=== PATIENT | male | born 1980 | race Caucasian/White ===

== ENCOUNTER 2022-07-02 12:50 | Observation (INO) | payer OTHER ==
[2022-07-02] MEDS ORDERED: ASPIRIN 81 MG PO STA (13:13)
[2022-07-02] MEDS ORDERED: NITROGLYCERIN OINT 1 INCH/GM PACKET TOPICAL STA (13:13)
[2022-07-02] MEDS ORDERED: LORazepam 2 MG/ML INJ IV STA (13:13)
--- NOTE | 2022-07-02 13:19 | ED ---
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 Patient states he's been having intermittent chest pain the last 6 months but it seems to worsened. Patient states he's had consistent chest pain since yesterday. Patient states the pain radiates to his left arm and into his jaw and into his back. Patient states she went and saw his doctor today and they sent him directly to the emergency department I offered him an ambulance ride but he refused. Patient states she's also short of breath when he has the chest pain. Patient states exertion does make it worse. Patient denies any diaphoretic episodes. Patient denies any nausea. Patient is a palpitations. Patient denies any recent fever chills states he has a slight cough occasionally. - Related Data Home Medications Medication Instructions Recorded Confirmed Azithromycin [Zithromax Z Pack] See Taper PO DIRECTED 07/02/22 07/02/22 predniSONE See Taper PO DIRECTED 07/02/22 07/02/22 Allergies Allergy/AdvReac Type Severity Reaction Status Date / Time No Known Allergies Allergy Verified 07/02/22 13:32 Review of Systems ROS Statement: Those systems with pertinent positive or pertinent negative responses have been documented in the HPI. ROS Other: All systems not noted in ROS Statement are negative. Past Medical History Additional Past Medical History / Comment(s): cardiac arrythmia History of Any Multi-Drug Resistant Organisms: None Reported Additional Past Surgical History / Comment(s): cardiac ablation Past Psychological History: No Psychological Hx Reported Smoking Status: Vaper Past Alcohol Use History: None Reported Past Drug Use History: None Reported, Marijuana General Exam - General Exam Comments Initial Comments: GENERAL: Patient is well-developed and well-nourished. Patient is nontoxic and well- hydrated and is in mild distress. ENT: Neck is soft and supple. No significant lymphadenopathy is noted. Oropharynx is clear. Moist mucous membranes. Neck has full range of motion without eliciting any pain. EYES: The sclera were anicteric and conjunctiva were pink and moist. Extraocular movements were intact and pupils were equal round and reactive to light. Eyelids were unremarkable. PULMONARY: Unlabored respirations. Good breath sounds bilaterally. No audible rales rhonchi or wheezing was noted. CARDIOVASCULAR: There is a regular rate and rhythm without any murmurs gallops or rubs. ABDOMEN: Soft and nontender with normal bowel sounds. SKIN: Skin is clear with no lesions or rashes and otherwise unremarkable. NEUROLOGIC: Patient is alert and oriented x3. Cranial nerves II through XII are grossly int act. Motor and sensory are also intact. Normal speech, volume and content. Symmetrical smile. MUSCULOSKELETAL: Normal extremities with adequate strength and full range of motion. No lower extremity swelling or edema. No calf tenderness. LYMPHATICS: No significant lymphadenopathy is noted PSYCHIATRIC: Patient is moderately anxious Limitations: no limitations Course Vital Signs 07/02/22 07/02/22 12:51 13:55 Temperature 97.8 F Pulse Rate 126 H 117 H Respiratory 26 H 18 Rate Blood Pressure 173/77 153/89 O2 Sat by Pulse 100 100 Oximetry Medical Decision Making - Medical Decision Making EKG was interpreted by myself shows sinus tachycardia at 130 bpm AK interval 215 QRS is 98 QT interval 318 QTC is 35 per patient's EKG shows no ST segment elevation however there is some slight ST segment depression inferiorly as well as leads V3 through V6 Was pt. sent in by a medical professional or institution (DONAL Dinh, SEISMOGRAPHER, urgent care, hospital, or fci...) When possible be specific @ -Patient's physician sent into the ER to be evaluated Did you speak to anyone other than the patient for history (EMS, parent, family, police, friend...)? What history was obtained from this source @ -No Did you review nursing and triage notes (agree or disagree)? Why? @ -I reviewed and agree with nursing and triage notes Were old charts reviewed (outside hosp., previous admission, EMS record, old EKG, old radiological studies, urgent care reports/EKG's, fci records)? Report findings @ -I reviewed EKG that was sent in from the primary medical care doctor's office Differential Diagnosis (chest pain, altered mental status, abdominal pain women, abdominal pain men, vaginal bleeding, weakness, fever, dyspnea, syncope, headache, dizziness, GI bleed, back pain, seizure, CVA, palpatations, mental health, musculoskeletal)? @ -Differential Chest Pain: Stable Angina, Unstable Angina, STEMI, NSTEMI Aortic Dissection, Pneumothorax, Musculoskeletal, Esophageal Spasm GERD, Cholecystitis, Pancreatitis, Zoster, this is not meant to be an all-inclusive list. EKG interpreted by me (3pts min.). @ -As above X-rays interpreted by me (1pt min.). @ -Chest x-ray was interpreted by myself as no acute abnormality CT interpreted by me (1pt min.). @ -None done U/S interpreted by me (1pt. min.). @ -None done What testing was considered but not performed or refused? (CT, X-rays, U/S, labs)? Why? @ -None What meds were considered but not given or refused? Why? @ -None Did you discuss the management of the patient with other professionals (professionals i.e. , PA, SEISMOGRAPHER, lab, RT, psych nurse, social science instructor, two way radio technician, teacher, data officer, correctional case manager)? Give summary @ -Spoke to Dr. Rubio agreed to admit the patient admitted the patient wrote admitting orders Was smoking cessation discussed for >3mins.? @ -No Was critical care preformed (if so, how long)? @ -No Were there social determinants of health that impacted care today? How? (Homelessness, low income, unemployed, alcoholism, drug addiction, transportation, low edu. Level, literacy, decrease access to med. care, [facility], rehab)? @ -No Was there de-escalation of care discussed even if they declined (Discuss DNR or withdrawal of care, Hospice)? DNR status @ -No What co-morbidities impacted this encounter? (DM, HTN, Smoking, COPD, CAD, Cancer, CVA, ARF, Chemo, Hep., AIDS, mental health diagnosis, sleep apnea, morbid obesity)? @ -Patient has a strong family history of heart disease Was patient admitted / discharged? Hospital course, mention meds given and route, prescriptions, significant lab abnormalities, going to OR and other pertinent info. @ -Patient given emergency department significant chest pain radiated to his arm and jaw and back. Patient was given Nitrol aspirin and a half an Ativan he felt almost 100% better. I spoke with Dr. Rubio he agreed to admit the patient admitted the patient wrote admitting orders I consulted cardiology. Undiagnosed new problem with uncertain prognosis? @ -No Drug Therapy requiring intensive monitoring for toxicity (Heparin, Nitro, Insulin, Cardizem)? @ -No Were any procedures done? @ -No Diagnosis/symptom? @ -Chest pain Acute, or Chronic, or Acute on Chronic? @ -Acute Uncomplicated (without systemic symptoms) or Complicated (systemic symptoms)? @ -Complicated Side effects of treatment? @ -No Exacerbation, Progression, or Severe Exacerbation? @ -No Poses a threat to life or bodily function? How? (Chest pain, USA, MA, pneumonia, PE, COPD, DKA, ARF, appy, cholecystitis, CVA, Diverticulitis, Homicidal, Suicidal, threat to staff... and all critical care pts) @ -Yes this could lead to an MA with complete end organ dysfunction - Lab Data Result diagrams: 07/02/22 13:14 07/02/22 13:14 Lab Results 07/02/22 07/02/22 07/02/22 Range/Units 13:14 13:14 13:14 WBC 7.6 (3.8-10.6) k/uL RBC 5.30 (4.30-5.90) m/uL Hgb 16.6 (13.0-17.5) gm/dL Hct 47.0 (39.0-53.0) % MCV 88.6 (80.0-100.0) fL MCH 31.4 (25.0-35.0) pg MCHC 35.4 (31.0-37.0) g/dL RDW 12.2 (11.5-15.5) % Plt Count 199 (150-450) k/uL MPV 6.8 Neutrophils % 72 % Lymphocytes % 16 % Monocytes % 9 % Eosinophils % 1 % Basophils % 0 % Neutrophils # 5.5 (1.3-7.7) k/uL Lymphocytes # 1.2 (1.0-4.8) k/uL Monocytes # 0.7 (0-1.0) k/uL Eosinophils # 0.1 (0-0.7) k/uL Basophils # 0.0 (0-0.2) k/uL PT 10.5 (9.0-12.0) sec INR 1.0 (<1.2) APTT 25.9 (22.0-30.0) sec Sodium 137 (137-145) mmol/L Potassium 3.5 (3.5-5.1) mmol/L Chloride 102 (98-107) mmol/L Carbon Dioxide 24 (22-30) mmol/L Anion Gap 11 mmol/L BUN 15 (9-20) mg/dL Creatinine 0.84 (0.66-1.25) mg/dL Est GFR (CKD-EPI)AfAm >90 (>60 ml/min/1.73 sqM) Est GFR (CKD-EPI)NonAf >90 (>60 ml/min/1.73 sqM) Glucose 108 H (74-99) mg/dL Calcium 9.8 (8.4-10.2) mg/dL Magnesium 1.6 (1.6-2.3) mg/dL Total Bilirubin 0.7 (0.2-1.3) mg/dL AST 26 (17-59) U/L ALT 36 (4-49) U/L Alkaline Phosphatase 77 (38-126) U/L Troponin I (0.000-0.034) ng/mL Total Protein 7.7 (6.3-8.2) g/dL Albumin 4.7 (3.5-5.0) g/dL 07/02/22 Range/Units 13:14 WBC (3.8-10.6) k/uL RBC (4.30-5.90) m/uL Hgb (13.0-17.5) gm/dL Hct (39.0-53.0) % MCV (80.0-100.0) fL MCH (25.0-35.0) pg MCHC (31.0-37.0) g/dL RDW (11.5-15.5) % Plt Count (150-450) k/uL MPV Neutrophils % % Lymphocytes % % Monocytes % % Eosinophils % % Basophils % % Neutrophils # (1.3-7.7) k/uL Lymphocytes # (1.0-4.8) k/uL Monocytes # (0-1.0) k/uL Eosinophils # (0-0.7) k/uL Basophils # (0-0.2) k/uL PT (9.0-12.0) sec INR (<1.2) APTT (22.0-30.0) sec Sodium (137-145) mmol/L Potassium (3.5-5.1) mmol/L Chloride (98-107) mmol/L Carbon Dioxide (22-30) mmol/L Anion Gap mmol/L BUN (9-20) mg/dL Creatinine (0.66-1.25) mg/dL Est GFR (CKD-EPI)AfAm (>60 ml/min/1.73 sqM) Est GFR (CKD-EPI)NonAf (>60 ml/min/1.73 sqM) Glucose (74-99) mg/dL Calcium (8.4-10.2) mg/dL Magnesium (1.6-2.3) mg/dL Total Bilirubin (0.2-1.3) mg/dL AST (17-59) U/L ALT (4-49) U/L Alkaline Phosphatase (38-126) U/L Troponin I <0.012 (0.000-0.034) ng/mL Total Protein (6.3-8.2) g/dL Albumin (3.5-5.0) g/dL Disposition Clinical Impression: Chest pain Disposition: ADMITTED IP TO THIS HOSP Referrals: Bj Marino DO [Primary Care Provider] - 1-2 days Time of Disposition: 14:38
[2022-07-02 13:32] LABS: Basophils % (A) 0 %; Eosinophils # (A) 0.1 k/uL (0-0.7); Eosinophils % (A) 1 %; HGB 16.6 gm/dL (13.0-17.5); Lymphocytes # (A) 1.2 k/uL (1.0-4.8); Lymphocytes % (A) 16 %; MCH 31.4 pg (25.0-35.0); MCHC 35.4 g/dL (31.0-37.0); MCV 88.6 fL (80.0-100.0); Mean Platelet Volume 6.8; Monocytes # (A) 0.7 k/uL (0-1.0); Monocytes % (A) 9 %; Neutrophils # (A) 5.5 k/uL (1.3-7.7); Neutrophils % (A) 72 %; Platelet Count 199 k/uL (150-450); RDW 12.2 % (11.5-15.5); WBC 7.6 k/uL (3.8-10.6)
[2022-07-02 13:41] LABS: Partial Thromboplastin Time 25.9 sec (22.0-30.0); Prothrombin Time 10.5 sec (9.0-12.0)
--- NOTE | 2022-07-02 13:43 | XR ---
EXAMINATION TYPE: XR chest 2V DATE OF EXAM: 07/02/2022 1:27 PM COMPARISON: None TECHNIQUE: XR chest 2V Frontal and lateral views of the chest. CLINICAL INDICATION:Male, 41 years old with history of Chest Pain; FINDINGS: Lungs/Pleura: There is no evidence of pleural effusion, focal consolidation, or pneumothorax. Pulmonary vascularity: Unremarkable. Heart/mediastinum: Cardiomediastinal silhouette is unremarkable. Musculoskeletal: No acute osseous pathology. IMPRESSION: No acute cardiopulmonary disease/process.
[2022-07-02 13:58] LABS: ALT 36 U/L (4-49); AST 26 U/L (17-59); African American GFR (CKD) >90 (>60 ml/min/1.73 sqM); Albumin 4.7 g/dL (3.5-5.0); Alkaline Phosphatase 77 U/L (38-126); Anion Gap 11 mmol/L; Blood Urea Nitrogen 15 mg/dL (9-20); Calcium 9.8 mg/dL (8.4-10.2); Carbon Dioxide 24 mmol/L (22-30); Chloride 102 mmol/L (98-107); Glucose 108 mg/dL (74-99); Magnesium 1.6 mg/dL (1.6-2.3); Non-African American GFR(CKD) >90 (>60 ml/min/1.73 sqM); Potassium 3.5 mmol/L (3.5-5.1); Sodium 137 mmol/L (137-145); Total Bilirubin 0.7 mg/dL (0.2-1.3); Total Protein 7.7 g/dL (6.3-8.2)
[2022-07-02] MEDS ORDERED: NITROGLYCERIN SL TABS 0.4 MG TAB SUBLINGUAL PRN (14:38)
--- NOTE | 2022-07-02 19:19 | P.HPIM ---
History of Present Illness H&P Date: 07/02/22 Chief Complaint: Chest pain This is a pleasant 41-year-old patient follows with Dr. Marino. 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 Patient presents an episode of left chest pain below the left arm going to the back dizzy lightheaded coming on for about 1-1/2 days. Patient's had these episodes in the past. [place] to be panic attack. He does sometimes become cold and clammy. Often times the business partners will get an argument and in the past he used to be over to manage it but now it becomes overwhelming sometimes. He is of anxious disposition. Patient doesn't vaping. About twice a week marijuana. Review of systems: GEN.: None EYES: None HEENT: None NECK: None RESPIRATORY: None CARDIOVASCULAR: As above GASTROINTESTINAL: None GENITOURINARY: None MUSCULOSKELETAL: None LYMPHATICS: None HEMATOLOGICAL: None PSYCHIATRY: Anxious NEUROLOGICAL: None Past medical history to include: Cardiac ablation for WPW Social history: Lives with his friend Myron. They do [place]. Physical examination: VITAL SIGNS: 97.8, 126, 26, 153/89, 100% room air GENERAL: [BMI 26.6, sitting up, awake, anxious. EYES: Pupils equal. Conjunctiva normal. HEENT: External appearance of nose and ears normal, oral cavity grossly normal. NECK: JVD not raised; masses not palpable. HEART: First and second heart sounds are normal; no edema. LUNGS: Respiratory rate normal; clear to auscultation. ABDOMEN: Soft, nontender, liver spleen not palpable, no masses palpable. PSYCH: [Alert and oriented x3; mood and affect anxious. MUSCULOSKELETAL:No Clubbing/cyanosis;muscles-grossly intact NEUROLOGICAL: Cranial nerves grossly intact; no facial asymmetry, power and sensation grossly intact. LYMPHATICS: No lymph nodes palpable in the axilla and neck INVESTIGATIONS, reviewed in the clinical context: White count 7.6 hemoglobin 16.6 platelets 199 potassium 3.5 creatinine 0.84 Troponin I less than 0.0123 EKG tracing personally reviewed by me-rate 113. Abnormal EKG Chest x-ray film personally reviewed by me-no infiltrates Assessment and plan: -Episodes of chest pain with radiation to the back left arm jaw or shortness of bed dizzy lightheadedness. Abnormal rhythm with tachycardia type unknown.- Consult cardiology. Check TSH -Nicotine dependence, patient does vaping Patient advised against -Recreational use of marijuana, Gummi's -Panic attacks/underlying anxiety. Consults psychiatry Past Medical History Additional Past Medical History / Comment(s): cardiac arrythmia History of Any Multi-Drug Resistant Organisms: None Reported Additional Past Surgical History / Comment(s): cardiac ablation Past Psychological History: No Psychological Hx Reported Smoking Status: Vaper Past Alcohol Use History: None Reported Past Drug Use History: None Reported, Marijuana Medications and Allergies Home Medications Medication Instructions Recorded Confirmed Type Azithromycin [Zithromax Z Pack] See Taper PO DIRECTED 07/02/22 07/02/22 History predniSONE See Taper PO DIRECTED 07/02/22 07/02/22 History Allergies Allergy/AdvReac Type Severity Reaction Status Date / Time No Known Allergies Allergy Verified 07/02/22 13:32 Physical Exam Vitals: Vital Signs Temp Pulse Resp BP Pulse Ox 07/02/22 17:09 106 H 18 143/79 98 07/02/22 15:26 111 H 17 143/84 96 07/02/22 13:55 117 H 18 153/89 100 07/02/22 12:51 97.8 F 126 H 26 H 173/77 100 Intake and Output 07/02/22 07/02/22 07/02/22 06:59 14:59 22:59 Other: Weight 86.636 kg Results CBC & Chem 7: 07/02/22 13:14 07/02/22 13:14 Labs: Abnormal Lab Results - Last 24 Hours (Table) 07/02/22 Range/Units 13:14 Glucose 108 H (74-99) mg/dL
[2022-07-02] MEDS: NITROGLYCERIN OINT 1 INCH/GM PACKET TOPICAL SCH (19:43)
[2022-07-03] MEDS: NITROGLYCERIN OINT 1 INCH/GM PACKET TOPICAL SCH ×3 (01:00→12:20)
[2022-07-03 06:27] VITALS: RESP 18
--- NOTE | 2022-07-03 06:58 | P.CRDCN ---
History of Present Illness Consult date: 07/03/22 Chief complaint: CP History of present illness: The patient is a pleasant 41-year-old gentleman with a past medical history significant for history of WPW status post ablation was performed in long time ago and he had the ablation twice as well as significant family history of coronary artery disease involving his father presented to the emergency department complaining of chest discomfort. The patient was in his usual state of health yesterday when he started experiencing discomfort mainly on the left side of the chest as a sharp/dull kind of discomfort with radiation to the left shoulder and left arm. The discomfort lasted for about 15-20 minutes. He decided to come to the emergency department for further investigation. The time he arrived he was chest pain-free. No associated symptoms of any shortness of breath or sweating or dizziness or lightheadedness or any heart racing or fluttering or any presyncope or syncope. Subsequently he underwent further investigation including EKG showing sinus mechanism was no evidence of ST or T- wave abnormalities and no evidence of any preexcitation. He was mildly tachycardic. He underwent 3 sets of cardiac enzymes came in to be unremarkable. Since that he has been chest pain-free. Please note that the patient also underwent a chest x-ray came in to be unremarkable. He has no risk factors for CAD like hypertension or dyslipidemia or diabetes and he is not a smoker. He does have a significant family history of coronary artery disease. The physical examination is remarkable for stable vital signs with a regular rhythm and mild sinus tachycardia and clear breathing sounds bilaterally and no lower extremities edema noted. The abdomen is soft and nontender Assessment Atypical chest discomfort History of WPW status post ablation Plan Acute coronary event was ruled out Rule out pulmonary embolism. Obtain d-dimer. It's unlikely diagnoses Rule out severe CAD. Obtain a stress test. Follow-up with the patient Past Medical History Additional Past Medical History / Comment(s): cardiac arrythmia History of Any Multi-Drug Resistant Organisms: None Reported Additional Past Surgical History / Comment(s): cardiac ablation Past Psychological History: No Psychological Hx Reported Smoking Status: Vaper Past Alcohol Use History: None Reported Past Drug Use History: None Reported, Marijuana Medications and Allergies Home Medications Medication Instructions Recorded Confirmed Type Azithromycin [Zithromax Z Pack] See Taper PO DIRECTED 07/02/22 07/02/22 History predniSONE See Taper PO DIRECTED 07/02/22 07/02/22 History Allergies Allergy/AdvReac Type Severity Reaction Status Date / Time No Known Allergies Allergy Verified 07/02/22 13:32 Physical Exam Vitals: Vital Signs Temp Pulse Pulse Resp BP BP Pulse Ox 07/03/22 05:21 98.1 F 72 18 138/74 100 07/02/22 21:55 98.1 F 102 H 19 137/92 99 07/02/22 21:15 107 H 12 112/69 07/02/22 21:00 103 H 16 112/69 07/02/22 20:47 100 21 112/69 07/02/22 17:09 106 H 18 143/79 98 07/02/22 15:26 111 H 17 143/84 96 07/02/22 13:55 117 H 18 153/89 100 07/02/22 12:51 97.8 F 126 H 26 H 173/77 100 Intake and Output 07/02/22 07/02/22 07/03/22 14:59 22:59 06:59 Other: # Voids 1 1 Weight 86.636 kg 86.636 kg Results 07/02/22 13:14 07/02/22 13:14 Cardiac Enzymes 07/02/22 07/02/22 07/02/22 Range/Units 13:14 13:14 14:59 AST 26 (17-59) U/L Troponin I <0.012 <0.012 (0.000-0.034) ng/mL 07/02/22 Range/Units 17:45 AST (17-59) U/L Troponin I <0.012 (0.000-0.034) ng/mL Coagulation 07/02/22 Range/Units 13:14 PT 10.5 (9.0-12.0) sec APTT 25.9 (22.0-30.0) sec CBC 07/02/22 Range/Units 13:14 WBC 7.6 (3.8-10.6) k/uL RBC 5.30 (4.30-5.90) m/uL Hgb 16.6 (13.0-17.5) gm/dL Hct 47.0 (39.0-53.0) % Plt Count 199 (150-450) k/uL Comprehensive Metabolic Panel 07/02/22 Range/Units 13:14 Sodium 137 (137-145) mmol/L Potassium 3.5 (3.5-5.1) mmol/L Chloride 102 (98-107) mmol/L Carbon Dioxide 24 (22-30) mmol/L BUN 15 (9-20) mg/dL Creatinine 0.84 (0.66-1.25) mg/dL Glucose 108 H (74-99) mg/dL Calcium 9.8 (8.4-10.2) mg/dL AST 26 (17-59) U/L ALT 36 (4-49) U/L Alkaline Phosphatase 77 (38-126) U/L Total Protein 7.7 (6.3-8.2) g/dL Albumin 4.7 (3.5-5.0) g/dL Current Medications Generic Name Dose Route Start Last Admin Trade Name Freq PRN Reason Stop Dose Admin Aspirin 325 mg 07/03/22 09:00 Aspirin 325 Mg Tab PO DAILY ALICIA Nitroglycerin 0.4 mg 07/02/22 14:38 Nitroglycerin Sl Tabs 0.4 Mg Tab SUBLINGUAL Q5M PRN Chest Pain Nitroglycerin 1 inch 07/02/22 18:00 07/03/22 05:27 Nitroglycerin Oint 1 Inch/Gm Packet TOPICAL Not Given Q6HR ALICIA Intake and Output 07/02/22 07/02/22 07/03/22 14:59 22:59 06:59 Other: # Voids 1 1 Weight 86.636 kg 86.636 kg Patient Weight 07/03/22 06:59 Weight 86.636 kg 07/02/22 13:14 07/02/22 13:14
[2022-07-03] MEDS ORDERED: ASPIRIN 325 MG TAB PO SCH (09:00)
[2022-07-03 09:26] LABS: Chol/HDL Ratio 4.45 Ratio; LDL Cholesterol,Calculated 93.2 mg/dL (0.0-131.0)
--- NOTE | 2022-07-03 10:39 | CA ---
Transthoracic Echo Report Name: Jose Alfredo Quinn Age: 41 Gender: M : 1980 Exam Date: 07/03/2022 08:08 Exam Location: [place] Echo Ht (in): 71 Wt (lb): 191 Ordering Physician: Eliel Moore MD ([id number]) Attending/Referring Phys: Judicial Registrar Gregory Mesa RDCS Procedure CPT: Indications: CP Cardiac Hx: Technical Quality: Fair Contrast 1: Total Dose (mL): Contrast 2: Total Dose (mL): MEASUREMENTS (Male / Female) Normal Values 2D ECHO LV Diastolic Diameter PLAX 4.6 cm 4.2 - 5.9 / 3.9 - 5.3 cm LV Systolic Diameter PLAX 3.4 cm LV Fractional Shortening PLAX 26.5 % IVS Diastolic Thickness 0.9 cm 0.6 - 1.0 / 0.6 - 0.9 cm IVS Systolic Thickness 1.6 cm LVPW Diastolic Thickness 1.1 cm 0.6 - 1.0 / 0.6 - 0.9 cm LVPW Systolic Thickness 1.2 cm LV Relative Wall Thickness 0.4 RV Internal Dim ED PLAX 4.0 cm LVOT Diameter 2.0 cm LA Systolic Diameter LX 3.6 cm 3.0 - 4.0 / 2.7 - 3.8 cm LV Diastolic Volume MOD BP 87.6 cm??? 67 - 155 / 56 - 104 cm??? LV Systolic Volume MOD BP 43.2 cm??? 22 - 58 / 19 - 49 cm??? LV Ejection Fraction MOD BP 50.7 % >= 55 % LV Stroke Volume MOD BP 44.4 cm??? LV Diastolic Volume MOD 4C 76.2 cm??? LV Systolic Volume MOD 4C 40.4 cm??? LV Ejection Fraction MOD 4C 46.9 % LV Stroke Volume MOD 4C 35.8 cm??? LV Diastolic Length 4C 7.9 cm LV Systolic Length 4C 6.5 cm LV Diastolic Volume MOD 2C 93.7 cm??? LV Systolic Volume MOD 2C 44.3 cm??? LV Ejection Fraction MOD 2C 52.8 % LV Stroke Volume MOD 2C 49.4 cm??? LV Diastolic Length 2C 8.6 cm LV Systolic Length 2C 6.9 cm M-MODE Aortic Root Diameter MM 3.2 cm LA Systolic Diameter MM 3.5 cm LA Ao Ratio MM 1.1 MV E Point Septal Separation 3.3 cm AV Cusp Separation MM 2.1 cm DOPPLER AV Peak Velocity 115.4 cm/s AV Peak Gradient 5.3 mmHg LVOT Peak Velocity 90.5 cm/s LVOT Peak Gradient 3.3 mmHg AV Area Cont Eq pk 2.6 cm??? MV Deceleration Greene 347.1 cm/s??? Mitral E Point Velocity 79.7 cm/s Mitral A Point Velocity 68.5 cm/s Mitral E to A Ratio 1.2 MV Deceleration Time 229.5 ms MV E' Velocity 10.0 cm/s Mitral E to MV E' Ratio 7.9 TR Peak Velocity 155.1 cm/s TR Peak Gradient 9.6 mmHg Right Ventricular Systolic Press 14.6 mmHg PV Peak Velocity 95.6 cm/s PV Peak Gradient 3.7 mmHg FINDINGS Left Ventricle Left ventricular ejection fraction is estimated at 55-60 %. Borderline left ventricular hypertrophy. Grade 1 diastolic dysfunction. Normal basal systolic function. Right Ventricle Borderline RV dilation Right Atrium Mild right atrial dilatation. Left Atrium Normal left atrial size. Mitral Valve Structurally normal mitral valve. Trace to mild mitral regurgitation. Aortic Valve Trileaflet aortic valve. Tricuspid Valve Trace to mild tricuspid regurgitation. Pulmonic Valve Structurally normal pulmonic valve. Pericardium Normal pericardium. No pericardial effusion. Aorta Normal size aortic root and proximal ascending aorta. CONCLUSIONS Low-normal left ventricular systolic function was EF around 50%. Borderline concentric LVH. Impaired relaxation of the LV Mild mitral regurgitation Trileaflet aortic valve with no stenosis or regurgitation Previewed by: Dr. Eliel Moore MD (Electronically Signed) Final Date: 03 July 2022 10:38
--- NOTE | 2022-07-03 12:06 | CA ---
Exercise Stress Test Report Name: Jose Alfredo Quinn Exam Date: 07/03/2022 11:15 Exam Location: [facility] Ht (in): 71 Wt (lb): 191 BSA: 2.07 Ordering Phys: Eliel Moore MD Referring Phys: BUSTER,, Technologist: Momo Lima Age: 41 Gender: M : 1980 Procedure CPT: Indications: CP ICD-10 Codes: Patient History: CHEST PAIN, DIFFICULTY IN BREATHING, PALPITATIONS, NUMBNESS IN FACE/NECK, FAMILY HX OF HEART DISEASE, FORMER SMOKER - QUIT 5 YEARS (1 PPD X 15 YEARS). PRIOR CATH Medications: Meds past 24 hrs: Pretest Chest Pain: STRESS TEST Victor M Protocol Exercise Duration (min:sec): 08:[address] Depressions (mm): Angina Score: Man Score: Resting HR (bpm): 101 Peak HR (bpm): 143 Resting BP (mmHg): 135 / 94 Peak BP (mmHg): 164 / 89 MPHR: 178 Target HR: 151 % MPHR: 80 METS: 10.3 Total Dose: Peak Dose: Atropine: Double Product: 37633 BP Response: Stress Termination: Dizziness,ARM TINGLING Stress Symptoms: DIZZINESS,ARM TINGLING Stress Summary: ECG ANALYSIS Resting ECG: Stress ECG: CONCLUSIONS Excellent exercise tolerance Normal EKG in response to exercise Dr. Eliel Moore MD (Electronically Signed) Final Date: 03 July 2022 12:06
[2022-07-03] MEDS ORDERED: SERTRALINE 50 MG TAB PO SCH (13:30)
[2022-07-03 14:21] VITALS: BP 132/82; PULSE 103; TEMP 97.6
--- NOTE | 2022-07-03 15:32 | P.CN ---
Psychiatric Consult - . Consult date: 07/03/22 Consult:: 07/03/22 12:50 IDENTIFYING DATA: This patient is a []41 yo male, currently lives with his boyfriend in a house, has no kids. he currently is a founder ceo & president of a [employer] REASON FOR REFERRAL: Psychiatry was consulted for ["uncontrolled anxiety"] HISTORY OF PRESENT ILLNESS: The patient presented to the hospital [on 07/02 with a known history of Parkinson White syndrome with ablation several years ago. Patient was complaining of intermittent chest pain or shortness of breath and radiating pain to his neck and arm for the past 6 months. Cardiology is on board and following along. Medicine consulted psychiatry for evaluation of patient's anxiety. Patient was seen sitting on his chair in his street clothes beside his partner who was agreeable to speak alone with the patient today in his room.] Patient claims that he came into the hospital for evaluation as he beleived that he was possibly having a "heart attack". He described the pain that was radiating, the numbness and also the chest pain. He spoke about having a hx of depression for the past couple of years and also having higher baseline anxiety. he states that sometimes feels like hes having panic attacks. He claims that he does have higher stress than usual, claims that he feels "criticized a lot" and not supported by his family due to being homosexual. claims that he also has significant stress at times in his career as a ceo [employer] of a [employer]. he is denying any paranoia or any manic like sx. claims that he can sleep up to 8 hrs fairly, has a fair appetite. At this time patient denies any suicidal or homical ideations, intent or plan. Patient denies any auditory, visual hallucinations and denies any paranoia or delusions. Patients admits to using thc gummies and joints of marijuana regularly to help with his anxiety. He states that he does not use cigarettes or other rec drugs. PAST PSYCHIATRIC HISTORY: Patient has a a history of [depression and anxiety]. [Patient denies being on any psychiatric medications.] [Patient denies any previous psychiatric hospitalizations.] [Patient denies any psychiatric outpatient follow-up however does states that he has a therapist that he calls infrequently in [place].] [Patient denies any history of suicide attempts in the past.] Past medical hx: Additional Past Medical History / Comment(s): cardiac arrythmia History of Any Multi-Drug Resistant Organisms: None Reported Additional Past Surgical History / Comment(s): cardiac ablation Past Psychological History: No Psychological Hx Reported Smoking Status: Vaper Past Alcohol Use History: None Reported Past Drug Use History: None Reported, Marijuana ALLERGIES: as per EMR. CHEMICAL DEPENDENCY HISTORY: as per HPI. FAMILY PSYCHIATRIC/SUBSTANCE USE HISTORY: [denies] SOCIAL HISTORY: Patient was born and raised in [place] and moved to [place]. He states that he completed high school, college and also completed law school in 2011. He states that he has worked various jobs and started companies and is now a founder ceo & president of a [employer] locally. He denies having any kids, lives with his partner in a house. MENTAL STATUS EXAM: General Appearance: Patient appears to be unshaven, wearing glasses and a hat, stated age is alert, pleasant, and cooperative. Patient appears to have [fair] hygiene and grooming wearing hospital gown with [fair] eye contact. Behavior: [Patient is calmly lying in bed without any agitated behavior.] appears to be anxious. Speech: Patient's speech is fluent and nonpressured. Mood/Affect: Patient reports their mood is "[depressed and anxious]", affect is congruent and mildly anxious Suicidality/Homicidality: Patient denies having any suicidal or homicidal ideation intent or plan. Perceptions: Patient denies any visual hallucinations [and denies any auditory hallucinations] Though content/process: There is no evidence of any delusional thought content and thought process is linear and goal-directed. focused on his sx. Memory and concentration: AOX3, grossly intact for the purposes of this session. Can spell "WORLD" backwards Judgment and insight: fair IMPRESSIONS: [likely ]generalized anxiety disorder with panic attacks history of depressive disorder cannabis use disorder PLAN: -At this time patient DOES [NOT] meet criteria for inpatient psychiatric admission. -Would recommend the following medication changes/additions: []discussed with patient different options for medications, coping skills and need for therapy. Patient was agreeable to start zoloft 50 mg daily for anxiety. we spoke about the risks, benefits, alternatives and side effects of treatment. He was also warned of the black box warning of all SSRIs/SNRIs for increasing suicidal ideations, he verbally understood and agreed to seek urgent medical attention if this does occur. [-distillery worker to provide patient with outpatient mental health/psychiatry resources for appropriate follow up upon discharge] [-Wrist Liner spoke with patient about substance abuse and the harmful effects on m edical and mental health, patient verbally understood and agreed.] -Patient was also encouraged to continue on and increase frequency of therapy to help with anxiety/depression. [-Communicated plan to patient's nurse] [-Psychiatry will sign off at this time] -Please contact with any questions.
--- NOTE | 2022-07-03 20:28 | P.DS ---
Providers Date of admission: 07/02/22 14:51 Expected date of discharge: 07/03/22 Attending physician: Efrain Rubio Consults: 07/02/22 14:38 Consult Physician Urgent Consulting Provider: [facility] Consult Reason/Comments: Chest pain Do you want consulting provider notified?: Yes 07/02/22 19:14 Consult Physician Routine Consulting Provider: Myron Chandler Consult Reason/Comments: Uncontrolled anxiety Do you want consulting provider notified?: Yes Primary care physician: Bj Marino [facility] Course: Chief Complaint: Chest pain This is a pleasant 41-year-old patient follows with Dr. Marino. 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 Patient presents an episode of left chest pain below the left arm going to the back dizzy lightheaded coming on for about 1-1/2 days. Patient's had these episodes in the past. [place] to be panic attack. He does sometimes become cold and clammy. Often times the business partners will get an argument and in the past he used to be over to manage it but now it becomes overwhelming sometimes. He is of anxious disposition. Patient doesn't vaping. About twice a week marijuana. 07/03/2022: TSH results discussed with the patient. He will follow-up with endocrinology Dr. Silva outpatient. Exercise stress test unremarkable. Excellent results. Seen by Dr. Chandler from psychiatry. Diagnosed with generalized anxiety disorder with panic attacks. Started on Zoloft. Will follow with [facility] Past medical history to include: Cardiac ablation for WPW Social history: Lives with his friend Myron. They do [employer]. Physical examination: VITAL SIGNS: 97.5, 73, 18, 1 28 x 81, 99% room air GENERAL: Comfortable. EYES: Pupils equal. Conjunctiva normal. HEENT: External appearance of nose and ears normal, oral cavity grossly normal. NECK: JVD not raised; masses not palpable. HEART: First and second heart sounds are normal; no edema. LUNGS: Respiratory rate normal; clear to auscultation. ABDOMEN: Soft, nontender, liver spleen not palpable, no masses palpable. PSYCH: [Alert and oriented x3; mood and affect anxious. INVESTIGATIONS, reviewed in the clinical context: D-dimer less than 0.17 TSH 0.359 Exercise stress test: Negative White count 7.6 hemoglobin 16.6 platelets 199 potassium 3.5 creatinine 0.84 Troponin I less than 0.0123 EKG tracing personally reviewed by me-rate 113. Abnormal EKG Chest x-ray film personally reviewed by me-no infiltrates Assessment and plan: -Probable psychosomatic chest pain from panic attack Advised to use brown paper bag with panic attacks -Generalized anxiety disorder with panic attacks Sotalol 50 mg day. Follow-up [facility] -Very low normal TSH. Rule out subclinical hyperthyroidism. Patient to follow-up with Dr. Cohen endocrinology -Nicotine dependence, patient does vaping Patient advised against -Recreational use of marijuana, Gummi's Disposition: Home Plan - Discharge Summary New Discharge Prescriptions: New Sertraline [Zoloft] 50 mg PO DAILY #30 tab Discontinued predniSONE See Taper PO DIRECTED Azithromycin [Zithromax Z Pack] See Taper PO DIRECTED Discharge Medication List Sertraline [Zoloft] 50 mg PO DAILY #30 tab 07/03/22 [Rx] Follow up Appointment(s)/Referral(s): dr ANGELA [Other] - 2 Weeks Bj Marino DO [Primary Care Provider] - 1-2 days Eliel Moore MD [STAFF PHYSICIAN] - 2 Weeks ([facility] will call patient with follow up appointment.) Ken Cohen MD [REFERRING] - 1 Week (Please contact your primary care provider for a referral to see Dr Robert Cohen regarding abnormal TSH.) Discharge/Stand Alone Forms: Community Resources, Outpatient Counseling Discharge Disposition: HOME SELF-CARE
== END 2022-07-03 16:32 | disposition home or self-care (01) ==
LOC: EC 12:50 → 6NMEDSUR 14:51
PROVIDERS: ADMIT Hospitalist; ATTEND Hospitalist
DX: R07.89 Other chest pain (principal); F41.0 Panic disorder [episodic paroxysmal anxiety]; F41.1 Generalized anxiety disorder; I34.0 Nonrheumatic mitral (valve) insufficiency; R42 Dizziness and giddiness; R94.31 Abnormal electrocardiogram [ECG] [EKG]; I45.6 Pre-excitation syndrome; F17.290 Nicotine dependence, other tobacco product, uncomplicated; Z82.49 Family history of ischemic heart disease and other diseases of the circulatory system; Z71.6 Tobacco abuse counseling
CPT/HCPCS: 96374; 99285; 36415; 94760; 93005; 93017; 93306; 85379; 80061; 80053; 84443; 83735; 84484; 85025; 85610; 85730; 71046; G0378 ×2; J2060

== ENCOUNTER 2023-09-12 06:42 | Emergency (ER) | payer OTHER ==
--- NOTE | 2023-09-12 07:02 | ED ---
ENT HPI - General Chief complaint: ENT Stated complaint: DORIS Time Seen by Provider: 09/12/23 07:00 Source: patient, RN notes reviewed Mode of arrival: ambulatory - History of Present Illness Initial comments: 42-year-old male presented to the ER with a chief complaint of sore throat. Patient reports he woke up this morning and states it felt like a "grape in his throat". He states every time he swallows he feels like it moves. He denies any difficulty breathing, fevers, cough or congestion. Patient states he has been drinking water without difficulty. Patient denies any other complaints. - Related Data Previous Rx's Medication Instructions Recorded Sertraline [Zoloft] 50 mg PO DAILY #30 tab 07/03/22 methylPREDNISolone [Medrol Dose 0 mg PO DIRECTED #1 packet 09/12/23 Pack] Allergies Allergy/AdvReac Type Severity Reaction Status Date / Time No Known Allergies Allergy Verified 09/12/23 06:47 Review of Systems ROS Statement: Those systems with pertinent positive or pertinent negative responses have been documented in the HPI. ROS Other: All systems not noted in ROS Statement are negative. Past Medical History Additional Past Medical History / Comment(s): cardiac arrythmia History of Any Multi-Drug Resistant Organisms: None Reported Additional Past Surgical History / Comment(s): cardiac ablation Past Psychological History: No Psychological Hx Reported Smoking Status: Vaper Past Alcohol Use History: None Reported Past Drug Use History: None Reported, Marijuana General Exam General appearance: alert, in no apparent distress ENT exam: Present: mucous membranes moist, other (Enlarged uvula) Neck exam: Present: normal inspection. Absent: tenderness, meningismus, lymphadenopathy Respiratory exam: Present: normal lung sounds bilaterally. Absent: respiratory distress, wheezes, rales, rhonchi, stridor Cardiovascular Exam: Present: regular rate, normal rhythm, normal heart sounds. Absent: systolic murmur, diastolic murmur, rubs, gallop, clicks Skin exam: Present: warm, dry, intact, normal color. Absent: rash Course Vital Signs 09/12/23 09/12/23 09/12/23 06:43 07:22 07:26 Temperature 97.7 F Pulse Rate 96 74 Respiratory 18 18 16 Rate Blood Pressure 192/96 147/92 O2 Sat by Pulse 98 100 Oximetry 09/12/23 08:29 Temperature 97.9 F Pulse Rate 76 Respiratory 18 Rate Blood Pressure 145/89 O2 Sat by Pulse 100 Oximetry Medical Decision Making - Medical Decision Making Was pt. sent in by a medical professional or institution (DONAL Dinh, [facility]IN PILER, urgent care, hospital, or custodial...) When possible be specific @ -No Did you speak to anyone other than the patient for history (EMS, parent, family, police, friend...)? What history was obtained from this source @ -No Did you review nursing and triage notes (agree or disagree)? Why? @ -I reviewed and agree with nursing and triage notes Were old charts reviewed (outside hosp., previous admission, EMS record, old EKG, old radiological studies, urgent care reports/EKG's, custodial records)? Report findings @ -No old charts were reviewed Differential Diagnosis (chest pain, altered mental status, abdominal pain women, abdominal pain men, vaginal bleeding, weakness, fever, dyspnea, syncope, headache, dizziness, GI bleed, back pain, seizure, CVA, palpatations, mental health, musculoskeletal)? @ -Strep pharyngitis, tonsillitis, viral illness this list is not meant to be all-inclusive EKG interpreted by me (3pts min.). @ -None X-rays interpreted by me (1pt min.). @ -None done CT interpreted by me (1pt min.). @ -None done U/S interpreted by me (1pt. min.). @ -None done What testing was considered but not performed or refused? (CT, X-rays, U/S, labs)? Why? @ -None What meds were considered but not given or refused? Why? @ -None Did you discuss the management of the patient with other professionals (professionals i.e. DONAL Dinh, BIN PILER, lab, RT, psych nurse, rn social services, corporate lawyer, teacher, nuclear officer, employment case manager)? Give summary @ -No Was smoking cessation discussed for >3mins.? @ -No Was critical care preformed (if so, how long)? @ -No Were there social determinants of health that impacted care today? How? (Homelessness, low income, unemployed, alcoholism, drug addiction, transportation, low edu. Level, literacy, decrease access to med. care, fpc, rehab)? @ -No Was there de-escalation of care discussed even if they declined (Discuss DNR or withdrawal of care, Hospice)? DNR status @ -No What co-morbidities impacted this encounter? (DM, HTN, Smoking, COPD, CAD, Cancer, CVA, ARF, Chemo, Hep., AIDS, mental health diagnosis, sleep apnea, morbid obesity)? @ -None Was patient admitted / discharged? Hospital course, mention meds given and route, prescriptions, significant lab abnormalities, going to OR and other pertinent info. @ -Discharge. 42-year-old male presented to ER with a chief complaint of sore throat. History and physical exam completed. Vitals stable. Patient in no signs of acute distress and nontoxic-appearing. Uvula edematous and mildly erythematous. No exudates present on tonsils. Patient drinking water without difficulty during exam. Strep negative. Patient received IM Decadron in the ER. Upon reevaluation, patient resting comfortably in exam room in no signs of acute distress. Results discussed with patient, all questions answered. Medrol Dosepak prescribed. Advise close follow-up with PCP. Return parameters discussed. Patient discharged stable condition. Patient verbally expressed understanding and agreement with care plan. Case discussed with ED attending, Dr. Gonzalez. Undiagnosed new problem with uncertain prognosis? @ -No Drug Therapy requiring intensive monitoring for toxicity (Heparin, Nitro, Insulin, Cardizem)? @ -No Were any procedures done? @ -No Diagnosis/symptom? @ -Uvulitis Acute, or Chronic, or Acute on Chronic? @ -Acute Uncomplicated (without systemic symptoms) or Complicated (systemic symptoms)? @ -Uncomplicated Side effects of treatment? @ -No Exacerbation, Progression, or Severe Exacerbation? @ -No Poses a threat to life or bodily function? How? (Chest pain, USA, DC, pneumonia, PE, COPD, DKA, ARF, appy, cholecystitis, CVA, Diverticulitis, Homicidal, Suicidal, threat to staff... and all critical care pts) @ -No - Lab Data Lab Results 09/12/23 Range/Units 07:24 Group A Strep (PCR) NOT DETECTED (Not Detectd) Disposition Clinical Impression: Uvulitis Disposition: HOME SELF-CARE Condition: Stable Instructions (If sedation given, give patient instructions): Uvulitis (ED) Additional Instructions: Follow-up with PCP in the next 3 to 5 days. Return to the ER for any new or worsening symptoms. Prescriptions: methylPREDNISolone [Medrol Dose Pack] 0 mg PO DIRECTED #1 packet Is patient prescribed a controlled substance at d/c from ED?: No Referrals: None,Stated [Primary Care Provider] - 1-2 days Forms: Area PCPs Time of Disposition: 08:16
[2023-09-12] MEDS: DEXAMETHASONE SOD PHOSPHATE 4 MG/ML 1 ML VIAL IM STA (07:54)
[2023-09-12 08:50] VITALS: BP 145/89; PULSE 76; RESP 18; TEMP 97.9
== END 2023-09-12 08:30 | disposition home or self-care (01) ==
LOC: EC 06:42
DX: K12.2 Cellulitis and abscess of mouth (principal); F17.290 Nicotine dependence, other tobacco product, uncomplicated
CPT/HCPCS: 87651; 99284; 96372; J1100